=== PATIENT | female | born 1985 | race Two or more races ===

== ENCOUNTER → 2024-09-21 | Outpatient (CLI) | payer OTHER, SELFPAY ==
[2024-09-21 11:48] LABS: Collection Type, Urine Clean Catch
[2024-09-21 12:21] LABS: Basophils % (Auto) 1 % (0-2.5); Eosinophils # (Auto) 0.2 Thou/mm3 (0.0-0.5); Eosinophils % (Auto) 5 % (0-10); Hematocrit 32.5 % (36.0-46.0); Hemoglobin 9.2 g/dL (12.0-16.0); Immature Granulocytes % (Auto) 0 % (0-0); Immature Granulocytes Auto 0.01 Thou/mm3 (0.00-0.00); Lymphocytes # (Auto) 1.8 Thou/mm3 (1.0-4.8); Lymphocytes % (Auto) 34 % (10-50); Mean Corpuscular HGB Conc 28.3 g/dl (31.0-37.0); Mean Corpuscular Hemoglobin 19.9 pg (25.0-35.0); Mean Corpuscular Volume 70 fL (80-100); Monocytes # (Auto) 0.5 Thou/mm3 (0.0-0.8); Monocytes % (Auto) 9 % (0-12); Neutrophils # (Auto) 2.7 Thou/mm3 (1.8-7.7); Neutrophils % (Auto) 52 % (37-80); Nucleated Red Blood Cell % 0 /100 WBC (0); Platelet Count 309 Thou/mm3 (140-440); RDW Standard Deviation 42.5 fL (36.4-46.3); Red Blood Count 4.63 Miln/mm3 (4.00-5.20); White Blood Count 5.2 Thou/mm3 (3.6-11.0)
[2024-09-21 12:32] LABS: Vitamin D 25 Hydroxy Total 25.8 ng/mL (7.3-40.2)
[2024-09-21 12:41] LABS: Bilirubin,Urine Negative (Negative); Blood,Urine Negative (Negative); Clarity,Urine Clear (Clear/Hazy); Color,Urine Colorless (Lt Yel-Yel); Culture Indicated,Urine Not Indicated; Glucose, Urine Negative (Negative); Ketones,Urine Negative (Negative); Leukocyte Esterase,Urine Negative (Negative); Nitrite,Urine Negative (Negative); PH,Urine 6.5 (5.0-7.0); Protein,Urine Negative (Neg - Trace); RBC,Urine 1 /hpf (0-3); Squamous Epithelial Cell,Urine 10 /hpf (0-5); Urobilinogen,Urine Negative mg/dL (0.0-1.0); WBC,Urine 2 /hpf (0-5)
[2024-09-21 12:43] LABS: Alanine Aminotransferase < 7 U/L (10-49); Albumin, Serum 4.1 gm/dL (3.5-5.0); Albumin/Globulin Ratio 1.6 (1.2-2.2); Alkaline Phosphatase 55 U/L (46-116); Anion Gap 8 (7-16); Aspartate Amino Transferase 17 U/L (0-34); BUN/Creatinine Ratio 19 Ratio (12-20); Bilirubin,Total 0.3 mg/dL (0.3-1.2); Blood Urea Nitrogen 13 mg/dL (9-23); Calcium 9.1 mg/dL (8.3-10.6); Calcium (Corrected) 9.1 mg/dL (8.5-10.1); Carbon Dioxide 26.9 mMol/L (20.0-31.0); Cardiac Risk Estimate 2.4 RATIO (3.7-5.6); Chloride 104 mMol/L (98-107); Cholesterol 184 mg/dL (132-200); Creatinine (Component) 0.7 mg/dL (0.6-1.3); Globulin 2.5 gm/dL (2.3-3.5); Glucose 95 mg/dL (74-106); HDL Cholesterol 77 mg/dL (40-60); LDL Cholesterol,Calculated 94 mg/dL (0-130); Osmolality,Calculated 277 (275-295); Potassium 4.5 mMol/L (3.4-5.1); Sodium 139 mMol/L (136-145); Thyroid Stimulating Hormone 1.04 uIU/mL (0.55-4.78); Total Protein 6.6 gm/dL (5.7-8.2); Triglycerides 65 mg/dL (30-150); eGFR > 60 See Note
== END | disposition home or self-care (01) ==
LOC: COPL 10:49
PROVIDERS: PCP Family Medicine; Referring Provider Nurse Practitioner Family; Visit Provider Nurse Practitioner Family
DX: Z00.00 Encounter for general adult medical examination without abnormal findings (principal); Z13.220 Encounter for screening for lipoid disorders
CPT/HCPCS: 36415; 80053; 80061; 81001; 82306; 84443; 85025

== ENCOUNTER → 2024-10-23 | Outpatient (CLI) | payer OTHER, SELFPAY ==
[2024-10-23 12:20] LABS: Vitamin B12 557 pg/mL (211-911)
[2024-10-23 12:23] LABS: Iron 25 mcg/dL (50-170)
[2024-10-29 06:28] LABS: Fecal Globin Result NOT DETECTED (NOT DETECTED)
== END | disposition home or self-care (01) ==
PROVIDERS: PCP Family Medicine; Referring Provider Nurse Practitioner Family; Visit Provider Nurse Practitioner Family
DX: D64.9 Anemia, unspecified (principal)
CPT/HCPCS: 36415; 82274; 82607; 83540; G0328

== ENCOUNTER → 2024-12-11 | Outpatient (CLI) | payer OTHER, SELFPAY ==
--- NOTE | 2024-12-11 15:00 | XR_ITS ---
Examination: Pelvic ultrasound, transabdominal, complete Technique: Transabdominal ultrasound of the pelvis performed using grayscale imaging Date and time of exam: December 11, 2024 1448 hours INDICATIONS: Irregular heavy menses 7 months FINDINGS: Uterus 16.2 cm, right uterine body mass 2.6 x 2.2 x 2.8 cm left uterine body mass 8.1 x 6.1 x 8.0 cm Endometrial stripe 0.5 cm Right ovary 5.0 cm arterial flow 31 x 29 mm cyst Left ovary 3.2 cm arterial flow IMPRESSION: Large uterine areas of probable fibroid degeneration, recommend 6 month follow up transvaginal pelvic sonography
--- NOTE | 2024-12-11 15:00 | XR_ITS ---
Examination: Transvaginal ultrasound of the pelvis, complete Technique: Transvaginal sonographic images pelvis performed using ayala scale imaging Exam date and time: December 11, 2024 1504 hours INDICATIONS: Irregular heavy menses 7 months FINDINGS: Uterus 14.4 cm left uterine body mass 6.8 x 6.4 cm Benign cervical cysts Endometrial stripe not visualized Right ovary 4.1 cm x 4.4 cm arterial flow 27 x 28 mm cyst Left ovary obscured by bowel gas IMPRESSION: Left uterine body mass, likely fibroid degeneration, 6.8 x 6.0 x 6.4 cm, recommend 6 month follow-up Transvaginal pelvic sonography.
== END | disposition home or self-care (01) ==
PROVIDERS: PCP Nurse Practitioner Family; Referring Provider Nurse Practitioner Family; Visit Provider Nurse Practitioner Family
DX: R19.09 Other intra-abdominal and pelvic swelling, mass and lump (principal)
CPT/HCPCS: 76830; 76856

== ENCOUNTER 2025-01-29 13:00 | Outpatient (AMB) | payer OTHER, SELFPAY ==
--- NOTE | 2025-01-29 13:14 | AMB.GYNCLNOT ---
Vital Signs 01/29/25 13:15 Height 1.75 m Height Method Measured Weight 94.12 kg Weight Measurement Method Standing Scale BMI 30.6 BP 129/82 Blood Pressure Source Automatic Cuff Blood Pressure Location Right Upper Arm Position Sitting Respiration 17 Pulse 82 Pulse Source Monitor Temp 98.0 F Temp Source Temporal Artery Scan Pulse Oximetry (%) 95 Oxygen Delivery Method Room Air Allergies/Home Meds Allergies & Medications Allergies No Known Allergies Allergy (Verified 01/29/25 13:15) Medication Reconciliation No Known Home Medications 01/29/25 [History Confirmed 01/29/25] Intake Visit Data Collection New Patient or Established: New Patient not seen in past 3 years at [facility] (considered New) Reason for Visit:: REF IRREGULAR MENSES Consent obtained for Telemed Visit: No Seen by Clinical Staff ONLY (RN/MA): No Licensed Dispensing Optician Required: No Do You Feel Safe at Home: Yes Authorities Contacted: N/A PCP or OBGYN visit in last 3 months: No Hx Now: No Are you currently on any form of Control: No Last menstrual period: 01/20/25 Pain Present Currently: No Pain Scale Used: Yousif-Abel/Numerical Pain scale:: 0 Smoking Status Smoking Status: Never smoker 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 1. Little interest or pleasure in doing things: not at all 2. Feeling down, depressed, or hopeless: not at all Total score: 0 PHQ-9 3. Trouble falling or staying asleep, or sleeping too much: Not at all 4. Feeling tired or having little energy: Not at all 5. Poor appetite or overeating: Not at all 6. Feeling bad about yourself - or that you are a failure or have let yourself or your family down: Not at all 7. Trouble concentrating on things, such as reading the newspaper or watching television: Not at all 8. Moving or speaking so slowly that other people could have noticed? - Or the opposite - being so fidgety or restless that you have been moving around a lot more than usual: not at all 9. Thoughts that you would be better off or of hurting yourself in some way: Not at all Total score: 0 If you checked off any problems, how difficult have these problems made it for you to do your work, take care of things at home, or get along with other people?: not difficult at all Source: Developed by Drs. Chilango Nance, Antonina Taylor, Santos Aguilar and colleagues, with an educational lakeshia from [employer]. Social History Living Situation History Lives With: Children Housing: House Tobacco History Smoking Status: Never smoker Alcohol History Alcohol Intake: Current Alcohol Intake Frequency: holidays/special occasions only Domestic Abuse History Do You Feel Safe at Home: Yes History of Present Illness HPI Narrative Subjective Patient is a 39-year-old female who presents on referral from [facility] for irregular menses, specifically heavy periods with clots that have significantly worsened over the last 6 months. She reports her periods have become progressively heavier, accompanied by the passage of clots, without associated pain. The bleeding is severe enough to interfere with her daily activities on heavy days. Patient denies any other symptoms related to this condition. Ms. Ochoa has one child, aged 21, delivered via . She has a history of anemia. The patient expresses interest in treatment options, particularly mentioning ablation as a potential solution she had considered. Her obstetric history includes A0 L1, with one child born via when the patient was 18 years old. Review of systems is positive for heavy menstrual periods with clots in the genitourinary system. Objective Diagnostic Test Results and Labs: - Iron (10/23/2024): 25 - B12 (10/23/2024): 557 - Hemoglobin (10/23/2024): 9.2 g/dL - CMP (10/23/2024): Within normal limits - Lipid panel (10/23/2024): Grossly within normal limits with elevated HDL - TSH (10/23/2024): 1.04 - 25-hydroxyvitamin D (10/23/2024): 25.8 - TSH (09/21/2024): 1.04 - Ultrasound transvaginal (12/11/2024): Uterus measuring 14.4 cm Left uterine body mass measuring 6.8 x 6.4 cm Benign cervical cysts Endometrial stripe not visualized Both ovaries appeared within normal measurements Exam General General Appearance: alert, in no apparent distress and healthy appearing Head Head exam: atraumatic Neck Neck exam: Present normal inspection and trachea midline Chest Chest inspection: Present normal inspection and symmetric chest wall rise External exam: Present normal external exam; Absent tenderness Neuro Neurological exam: Present oriented X3 Psych Psychiatric exam: Present normal affect and normal mood Office Procedures OB Clinic LOC & Office Proc's Nursing/Assessment Patient Status: Initial/New Patient OB Clinic Nursing Assessment: Medication Reconciliation, Update PMH in EMR and Vital Signs OB Clinic Coordination of Care: Complex Care and Chronic Disease 1-5, Consent,records obtained, informed consent, Education Simp Pt/Fam and 4+ Authorizations needed New Patient Charge New Patient Point Assignment: [id number] 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 - Correlates with patient's reported heavy menstrual bleeding and clots, worsened over last 6 months. - Refer to Dr. Preeti Rai in [place] for minimally invasive fibroid treatment: - Laparoscopic radiofrequency ablation of fibroid - Endometrial ablation following fibroid treatment - Order additional laboratory tests: FSH, Estrogen, Progesterone - Anticipate possible MRI ordered by Dr. Olsen for surgical planning Iron Deficiency Anemia: - Lab results (September 21, 2024) show low hemoglobin (9.2) and iron (25) levels. - Address underlying cause (uterine fibroid) as outlined in fibroid treatment plan - Reassess hemoglobin and iron levels after fibroid treatment
[2025-01-29 13:15] VITALS: BP 129/82; PULSE 82; RESP 17; TEMP 36.7; O2SAT 95; BMI 30.6
== END 2025-01-29 13:39 | disposition home or self-care (01) ==
LOC: HODSOBC 13:00
PROVIDERS: PCP Nurse Practitioner Family; Referring Provider Nurse Practitioner Family; Supervising Provider Obstetrics & Gynecology; Visit Provider Obstetrics & Gynecology
DX: D25.1 Intramural leiomyoma of uterus (principal); N93.9 Abnormal uterine and vaginal bleeding, unspecified; D50.9 Iron deficiency anemia, unspecified
CPT/HCPCS: 99203; G0463